=== PATIENT | female | born 1980 | race Caucasian/White ===

== ENCOUNTER 2017-04-07 12:32 | Inpatient (IN) | payer OTHER ==
[2017-04-07] MEDS ORDERED: MORPHINE SULFATE 4 MG/ML SYRINGE IV STA (14:34)
[2017-04-07] MEDS ORDERED: TETANUS-DIPHTHERIA TOX (PF) 0.5 ML VIAL IM ONE (14:34)
[2017-04-07] MEDS ORDERED: cefTRIAXone 2,000 MG in SODIUM CHLORIDE 0.9% 100 ML IVPB STA (14:39)
[2017-04-07] MEDS ORDERED: CLINDAMYCIN 900 MG in DEXTROSE 5% IN WATER 50 ML IVPB STA ×2 (14:40)
[2017-04-07 14:50] LABS: Basophils % (A) 0 %; CH 31.4; CHCM 34.1; Eosinophils % (A) 0 %; HCT 43.6 % (34.0-46.0); HDW 2.37; HGB 14.5 gm/dL (11.4-16.0); Luc # (Auto) 0.23; Luc % (Auto) 1; Lymphocytes # (A) 1.6 k/uL (1.0-4.8); Lymphocytes % (A) 7 %; MCH 30.7 pg (25.0-35.0); MCHC 33.2 g/dL (31.0-37.0); MCV 92.5 fL (80.0-100.0); Mean Platelet Volume 9.6; Monocytes % (A) 5 %; Neutrophils # (A) 18.6 k/uL (1.3-7.7); Neutrophils % (A) 87 %; RBC 4.72 m/uL (3.80-5.40); RDW 13.5 % (11.5-15.5); WBC 21.4 k/uL (3.8-10.6); WBC (Perox) 21.55
[2017-04-07] MEDS ORDERED: SODIUM CHLORIDE 0.9% 2,000 ML IV STA (14:56)
[2017-04-07 15:00] LABS: Calcium 9.1 mg/dL (8.4-10.2); Total Bilirubin 1.1 mg/dL (0.2-1.3); Total Protein 7.5 g/dL (6.3-8.2)
[2017-04-07 15:02] LABS: Potassium 3.4 mmol/L (3.5-5.1)
[2017-04-07] MEDS ORDERED: SODIUM CHLORIDE 0.9% 1,000 ML IV ONE (15:33)
[2017-04-07] MEDS ORDERED: ACETAMINOPHEN TAB 500 MG TAB PO STA (16:03)
--- NOTE | 2017-04-07 16:09 | ED ---
Skin/Abscess/FB HPI - General Chief complaint: Skin/Abscess/Foreign Body Stated complaint: Infection on Buttock Time Seen by Provider: 04/07/17 12:47 Source: patient Mode of arrival: ambulatory Limitations: no limitations - History of Present Illness Initial comments: 46 years old female presented with a left forearm abscess that started about 3 days ago is very painful. Initial high fever chills or fever greater than 102 at home now she has a palpitation and she feels tired. She denies any headaches no neck stiffness no chest pain no abdominal pain no frequency urgency dysuria - Related Data Home Medications Medication Instructions Recorded Confirmed HYDROcodone/APAP 10-325MG [[place] 1 tab PO QID PRN 10/19/15 04/07/17 10-325] Allergies Allergy/AdvReac Type Severity Reaction Status Date / Time Penicillins Allergy Unknown Verified 04/07/17 12:37 Review of Systems ROS Statement: Those systems with pertinent positive or pertinent negative responses have been documented in the HPI. ROS Other: All systems not noted in ROS Statement are negative. Past Medical History Past Medical History: Cancer Additional Past Medical History / Comment(s): ovarian, cervix, uterine and fallopian ca History of Any Multi-Drug Resistant Organisms: None Reported Past Surgical History: Appendectomy Additional Past Surgical History / Comment(s): part of cervix removed Past Psychological History: Anxiety, Depression, Schizophrenia Smoking Status: Current every day smoker Past Alcohol Use History: None Reported Past Drug Use History: None Reported General Exam - General Exam Comments Initial Comments: General: The patient is awake and alert, distress Skin: Skin is warm and dry and no rashes or lesions are noted. With the exception of for a notes indurated area on the left buttocks and left greater trochanter area is about 10 x 10 cm is warm and tender but not quite ready for the I&D at this point Eye: Pupils are equal, round and reactive to light, extra-ocular movements are intact; there is normal conjunctiva bilaterally. Ears, nose, mouth and throat: There are moist mucous membranes and no oral lesions. Neck: The neck is supple, there is no tenderness or JVD. Cardiovascular: There is a regular rate and rhythm. No murmur, rub or gallop is appreciated. His tachycardia Respiratory: To auscultation bilateral, no wheezing no rhonchi no distress respiratory [place] noticed Gastrointestinal: Soft, non-distended, non-tender abdomen without masses or organomegaly noted. There is no rebound or guarding present. Bowel sounds are unremarkable. Back: There is no tenderness to palpation in the midline. There is no obvious deformity. Musculoskeletal: Normal ROM, no tenderness, There is no pedal edema. There is no calf tenderness or swelling. No cords were appreciated. Neurological: CN II-XII intact, Cranial nerves III through XII are intact. There are no obvious motor or sensory deficits. Coordination appears grossly intact. Speech is normal. Psychiatric: Cooperative, appropriate mood & affect, normal judgment. Limitations: no limitations Course Vital Signs 04/07/17 04/07/17 04/07/17 12:34 14:14 15:25 Temperature 101.7 F H 99.5 F Pulse Rate 139 H 118 H 111 H Respiratory 18 18 20 Rate Blood Pressure 123/79 130/56 149/80 O2 Sat by Pulse 98 97 99 Oximetry 04/07/17 16:06 Temperature 103 F H Pulse Rate Respiratory Rate Blood Pressure O2 Sat by Pulse Oximetry Medical Decision Making - Lab Data Result diagrams: 04/07/17 12:56 04/07/17 12:56 Lab Results 04/07/17 04/07/17 Range/Units 12:56 12:56 WBC 21.4 H (3.8-10.6) k/uL RBC 4.72 (3.80-5.40) m/uL Hgb 14.5 (11.4-16.0) gm/dL Hct 43.6 (34.0-46.0) % MCV 92.5 (80.0-100.0) fL MCH 30.7 (25.0-35.0) pg MCHC 33.2 (31.0-37.0) g/dL RDW 13.5 (11.5-15.5) % Plt Count 233 (150-450) k/uL Neutrophils % 87 % Lymphocytes % 7 % Monocytes % 5 % Eosinophils % 0 % Basophils % 0 % Neutrophils # 18.6 H (1.3-7.7) k/uL Lymphocytes # 1.6 (1.0-4.8) k/uL Monocytes # 1.0 (0-1.0) k/uL Eosinophils # 0.0 (0-0.7) k/uL Basophils # 0.0 (0-0.2) k/uL Sodium 133 L (137-145) mmol/L Potassium 3.4 L (3.5-5.1) mmol/L Chloride 100 (98-107) mmol/L Carbon Dioxide 18 L (22-30) mmol/L Anion Gap 15 mmol/L BUN 10 (7-17) mg/dL Creatinine 1.25 H (0.52-1.04) mg/dL Est GFR (MDRD) Af Amer 59 (>60 ml/min/1.73 sqM) Est GFR (MDRD) Non-Af 49 (>60 ml/min/1.73 sqM) Glucose 99 (74-99) mg/dL Calcium 9.1 (8.4-10.2) mg/dL Total Bilirubin 1.1 (0.2-1.3) mg/dL AST 50 H (14-36) U/L ALT 45 (9-52) U/L Alkaline Phosphatase 112 (38-126) U/L Total Protein 7.5 (6.3-8.2) g/dL Albumin 4.0 (3.5-5.0) g/dL Critical Care Time Total Critical Care Time: 30 Critical Care Time: When patient came in fever was 102 pulse rate was 139 blood pressure was 122/70 CC Nathan distress respiratory fluid resuscitation was started cultures were done lactate is pending machine is down today. Patient has a gentle fluid resuscitation with 2 L and ultimately to wrist: Patient also had a 2 g of Rocephin and Flagyl she seems a lot better I discussed with the patient she agreed with inpatient care Dr. Strauss was made aware and now we also discussed that the lactate level is not available at this point patient is hemodynamically stable to go to regular floor Disposition Clinical Impression: Sepsis, Abscess Disposition: ADMITTED IP TO THIS HOSP Condition: Good Referrals: Shaun Strauss MD [Primary Care Provider] - 1-2 days
[2017-04-07] MEDS ORDERED: ACETAMINOPHEN TAB 500 MG TAB PO PRN (16:23)
[2017-04-07 17:38] VITALS: BMI 34.5
[2017-04-07] MEDS: SODIUM CHLORIDE 0.9% 1,000 ML IV ONE (17:51)
[2017-04-07] MEDS: HYDROcodone/APAP 10-325MG 1 EACH TAB PO PRN (17:51)
[2017-04-07] MEDS: metroNIDAZOLE-NS PMX 500 MG in SALINE 1 100ML.BAG IVPB SCH (23:59)
[2017-04-08] MEDS: HYDROcodone/APAP 10-325MG 1 EACH TAB PO PRN
[2017-04-08] MEDS: SODIUM CHLORIDE 0.9% 1,000 ML IV ONE (00:07)
[2017-04-08] MEDS ORDERED: NICOTINE 21MG/24HR PATCH TRANSDERM STA (08:20)
[2017-04-08] MEDS: SODIUM CHLORIDE 0.9% 1,000 ML IV SCH (08:21)
[2017-04-08] MEDS: metroNIDAZOLE-NS PMX 500 MG in SALINE 1 100ML.BAG IVPB SCH ×2 (08:21→18:11)
--- NOTE | 2017-04-08 08:33 | P.HPIM ---
History of Present Illness H&P Date: 04/08/17 Chief Complaint: left buttock abscess 37-year-old female presented on the day of admission to the emergency room with a chief complaint of developing painful swelling redness tenderness involving the left buttocks. Patient stated it started approximately 3 days ago when she noted "looked like a pimple over the next 24-48 hours it expanded Increased in size woke up the day of the event the left buttocks cheek swollen tender with firmness at the site. Patient stated she had a temp of 102 at home felt heart palpitations increased fatigue nausea sensation vomited 1. Patient denies any injury. Patient denies any prior treatment for abscess. Patient denied abdominal pain denied any frequency urgency with urination. Patient states she has had a poor oral appetite at home secondary to the pain in the left buttock. Patient stated that she was concerned and came into the emergency room to be evaluated for the above-mentioned symptoms. In the emergency room the temp was 103 patient was tachycardic heart rate was in the 130s white count was elevated to 21 patient was admitted started on IV fluid and IV antibiotics. The left buttock has increased in size from the reference markings. The left buttocks red cellulitis firm with several small blisters. past medical history patient states she takes [employer] for chronic back pain. Otherwise an unremarkable past medical history. Patient is an active current every day smoker. Patient gives no surgical history except having part of the cervix removed Review of Systems essentially unremarkable except as mentioned in the present illness Past Medical History Past Medical History: Cancer Additional Past Medical History / Comment(s): ovarian, cervix, uterine and fallopian ca. CHRONIC BACK PAIN History of Any Multi-Drug Resistant Organisms: None Reported Past Surgical History: Appendectomy Additional Past Surgical History / Comment(s): part of cervix removed Past Anesthesia/Blood Transfusion Reactions: No Reported Reaction Past Psychological History: Anxiety, Depression Smoking Status: Current every day smoker Past Alcohol Use History: None Reported Past Drug Use History: None Reported - Past Family History Mother Family Medical History: No Reported History Medications and Allergies Home Medications Medication Instructions Recorded Confirmed Type HYDROcodone/APAP 10-325MG [[place] 1 tab PO QID PRN 10/19/15 04/07/17 History 10-325] Allergies Allergy/AdvReac Type Severity Reaction Status Date / Time Penicillins Allergy Unknown Verified 04/07/17 12:37 Physical Exam Vitals: Vital Signs Temp Pulse Pulse Pulse Resp BP BP 04/08/17 08:00 100.4 F H 112 H 18 113/84 04/08/17 00:00 101.8 F H 126 H 24 153/89 04/07/17 20:00 100.2 F H 98 24 120/69 04/07/17 17:00 100.3 F H 107 H 18 123/68 04/07/17 16:53 102.6 F H 97 18 152/90 04/07/17 16:06 103 F H 04/07/17 15:25 99.5 F 111 H 20 149/80 04/07/17 14:14 118 H 18 130/56 04/07/17 12:34 101.7 F H 139 H 18 123/79 Pulse Ox 04/08/17 08:00 99 04/08/17 00:00 97 04/07/17 20:00 98 04/07/17 17:00 99 04/07/17 16:53 96 04/07/17 16:06 04/07/17 15:25 99 04/07/17 14:14 97 04/07/17 12:34 98 Intake and Output 04/07/17 04/08/17 04/08/17 22:59 06:59 14:59 Intake Total 400 1200 Output Total 500 650 Balance -100 550 Intake: Oral 400 1200 Output: Urine 500 650 Other: Voiding Method Toilet Toilet # Voids 1 1 Weight 85.729 kg GENERAL APPEARANCE: 37-year-old female patient is alert, oriented, in no acute distress. VITAL SIGNS: reviewed HEENT: Head is normocephalic and atraumatic. Pupils are equal and reactive. The nares are patent. Oropharynx is clear without lesions. NECK: Supple without lymphadenopathy. Traches midline. HEART: S1, S2. Regular rate and rhythm.no murmur noted heart rate in the 90s LUNGS: .adequate air movement a few bilateral prolonged expiratory wheezing noted no cough noted ABDOMEN: Soft, nontender, nondistended with good bowel sounds. No peritoneal signs. No palpable organomegaly or masses. EXTREMITIES: Normal skin color and turgor. No cyanosis, rash, ulceration, clubbing or edema. Radial pedal pulses are 2/4 bilaterally. NEUROLOGICAL: No focal deficits. Strength and sensation are grossly intact. skin no skin rash noted except there is a large 10 x 10 cm left buttock inturated firm tender areawith evidence of redness Results CBC & Chem 7: 04/07/17 12:56 04/07/17 12:56 Labs: Abnormal Lab Results - Last 24 Hours (Table) 04/07/17 04/07/17 Range/Units 12:56 12:56 WBC 21.4 H (3.8-10.6) k/uL Neutrophils # 18.6 H (1.3-7.7) k/uL Sodium 133 L (137-145) mmol/L Potassium 3.4 L (3.5-5.1) mmol/L Carbon Dioxide 18 L (22-30) mmol/L Creatinine 1.25 H (0.52-1.04) mg/dL AST 50 H (14-36) U/L Thrombosis Risk Factor Assmnt - Choose All That Apply Any of the Below Risk Factors Present?: Yes Each Factor Represents 1 point: Obesity (BMI >25) Thrombosis Risk Factor Assessment Total Risk Factor Score: 1 Thrombosis Risk Factor Assessment Level: Low Risk Assessment and Plan Plan: impression Present on admission febrile tachycardic leukocytosis sepsis suspect due to left buttock abscess new onset Current every day smoker 1 pack a day Anxiety depressive disorder nonspecified Present on admission 10 x 10 cm indurated area left buttock and left greater trochanter Plan IV fluid and 25 an hour Continue IV antibiotics Rocephin and the ankle as ordered Obtain urine sent for culture and sensitivity Consult Dr. Quezada surgical service to monitor the left buttock abscess question will need for incision and drainage Pain control DVT and GI prophylaxis Further recommendations pending will follow The above impression and plan of care have been discussed and directed by signing physician. Jennifer Portillo nurse practitioner acting as scribe for signing physician.
[2017-04-08] MEDS: HYDROmorphone 1 MG/ML 1 ML SYRINGE IVP PRN ×2 (08:51→15:44)
[2017-04-08] MEDS: PANTOPRAZOLE 40 MG/10 ML VIAL IVP SCH (09:00)
[2017-04-08] MEDS: LACTOBACILLUS ACIDOPH & BULGAR 1 EACH PACKET PO SCH ×4 (09:00→22:37)
[2017-04-08] MEDS: ONDANSETRON 4 MG/2 ML VIAL IVP PRN ×2 (09:01→16:56)
[2017-04-08 09:06] LABS: Basophils % (A) 0 %; CH 30.4; CHCM 33.7; Eosinophils % (A) 0 %; HCT 34.4 % (34.0-46.0); HDW 2.45; HGB 11.8 gm/dL (11.4-16.0); Luc # (Auto) 0.34; Luc % (Auto) 2; Lymphocytes # (A) 1.6 k/uL (1.0-4.8); Lymphocytes % (A) 8 %; MCH 31.1 pg (25.0-35.0); MCHC 34.4 g/dL (31.0-37.0); MCV 90.5 fL (80.0-100.0); Mean Platelet Volume 8.6; Monocytes # (A) 1.1 k/uL (0-1.0); Monocytes % (A) 5 %; Neutrophils # (A) 17.8 k/uL (1.3-7.7); Neutrophils % (A) 85 %; RDW 12.7 % (11.5-15.5); WBC 20.9 k/uL (3.8-10.6); WBC (Perox) 21.56
[2017-04-08] MEDS ORDERED: IV VANCOMYCIN PER PHARMACY 1 EACH MISC MISCELLANE PRN (09:17)
[2017-04-08 09:27] LABS: ALT 34 U/L (9-52); AST 30 U/L (14-36); Alkaline Phosphatase 73 U/L (38-126); Anion Gap 10 mmol/L; Blood Urea Nitrogen 8 mg/dL (7-17); Calcium 7.8 mg/dL (8.4-10.2); Carbon Dioxide 19 mmol/L (22-30); Chloride 103 mmol/L (98-107); Glucose 87 mg/dL (74-99); Non-African American GFR(MDRD) >60 (>60 ml/min/1.73 sqM); Sodium 132 mmol/L (137-145); Total Protein 5.4 g/dL (6.3-8.2)
[2017-04-08 09:31] LABS: Potassium 2.8 mmol/L (3.5-5.1)
[2017-04-08] MEDS ORDERED: LIDOCAINE 4% CREAM 5 GM TUBE TOPICAL ONE (09:49)
[2017-04-08] MEDS ORDERED: POTASSIUM CHLORIDE ER 20 MEQ TAB.ER PO SCH (10:00)
[2017-04-08] MEDS ORDERED: VANCOMYCIN 1,750 MG in SODIUM CHLORIDE 0.9% 250 ML IVPB ONE (10:00)
[2017-04-08 10:20] LABS: Appearance,Urine Clear (Clear); Bacteria,Urine Rare /hpf; Bilirubin,Urine Negative (Negative); Glucose,Urine (UA) Negative (Negative); Ketones,Urine Negative (Negative); Leukocyte Esterase,Urine Trace (Negative); Mucus,Urine Rare /hpf; Nitrite,Urine Negative (Negative); Particle Count 2721; Protein,Urine 1+ (Negative); RBC,Urine 26 /hpf (0-5); Specific Gravity,Urine 1.007 (1.001-1.035); Squamous Epithelial Cell,Urine 2 /hpf (0-4); UA Billing (MACRO vs. MICRO) MICRO; WBC,Urine 10 /hpf (0-5)
[2017-04-08] MEDS: IPRATROPIUM-ALBUTEROL 3 ML NEB INHALATION PRN (10:22)
[2017-04-08] MEDS: POTASSIUM CHLORIDE 10 MEQ, LIDOCAINE 2% INJ 10 MG in SODIUM CHLORIDE 0.9% 100 ML IVPB SCH ×6 (11:17→23:47)
[2017-04-08] MEDS: MAGNESIUM SULFATE-D5W PMX 1 GM in DEXTROSE/WATER 1 100ML.BAG IVPB SCH ×4 (11:58→17:00)
[2017-04-08] MEDS ORDERED: ACETAMINOPHEN IV (For NPO) 1,000 MG in EMPTY BAG 1 BAG IVPB ONE (12:30)
--- NOTE | 2017-04-08 15:17 | HP ---
CHIEF COMPLAINT: Pain, swelling and abscess on the left buttock. HISTORY OF PRESENT ILLNESS: This is another admission for this 37-year-old white female. She had a small pimple on the left buttock and it gradually grew into a large of cellulitis with induration and pain. She came to the emergency room. Her temp was 102 and her pulse was 114. White count was 22,000. There has been no drainage. She is not diabetic. REVIEW OF SYSTEMS: She has had no neurologic problems, difficulty with vision or hearing, chest pain, shortness of breath, cough, hemoptysis, heart disease, hypertension, murmurs, fever, abdominal pain, nausea, vomiting, hematuria, frequency, urgency, dysuria, arthralgias, diabetes, etc. PAST MEDICAL HISTORY, FAMILY HISTORY AND PERSONAL/SOCIAL HISTORY: Reveal that she is allergic to PENICILLIN. She has not been seen in the office for several years. She does smoke. PHYSICAL EXAM: Blood pressure 134/90 with a pulse of 112, respirations 36 and temperature 102. GENERAL: She appeared to be overweight and uncomfortable. SKIN: Dry. LYMPH NODES: Not enlarged. She had multiple tattoos on the arms and legs. HEENT: Normal. CHEST: Clear. CARDIAC: Normal. ABDOMEN: Soft. EXTREMITIES: Normal. The left buttock was indurated and erythematous. There was no drainage. NEUROLOGIC: Intact. IMPRESSION: Cellulitis and abscess of the left buttock, likely staphylococcus. PLAN: 1. Bedrest. 2. IV fluids. 3. IV antibiotics. 4. Surgical consult for I&D. GENEVIEVE
--- NOTE | 2017-04-08 15:19 | PN ---
DATE OF SERVICE: 04/08/2017 CHIEF COMPLAINT: Abscess, left buttock. HISTORY OF PRESENT ILLNESS: This lady is doing fairly well but still has quite a bit of discomfort. The area of cellulitis has receded slightly. PHYSICAL EXAMINATION: Cellulitic area is slightly smaller than on admission, but there is still a great deal of induration and tenderness. IMPRESSION: Methicillin-resistant Staphylococcus aureus abscess of the left buttock. PLAN: Continue with antibiotics and await surgical evaluation. GENEVIEVE
[2017-04-08] MEDS: cefTRIAXone 2,000 MG in SODIUM CHLORIDE 0.9% 100 ML IVPB SCH (16:32)
[2017-04-08 16:55] LABS: Anion Gap 9 mmol/L; Blood Urea Nitrogen 7 mg/dL (7-17); Calcium 7.5 mg/dL (8.4-10.2); Carbon Dioxide 19 mmol/L (22-30); Chloride 105 mmol/L (98-107); Glucose 95 mg/dL (74-99); Non-African American GFR(MDRD) >60 (>60 ml/min/1.73 sqM); Sodium 133 mmol/L (137-145)
[2017-04-08] MEDS ORDERED: Potassium Replacement Protocol 1 EACH MISC MISCELLANE PRN (17:36)
[2017-04-08] MEDS: POTASSIUM CHLORIDE 10 MEQ, LIDOCAINE 2% INJ 10 MG in SODIUM CHLORIDE 0.9% 100 ML IV SCH ×2 (18:08→19:11)
[2017-04-08] MEDS: VANCOMYCIN 1,500 MG in SODIUM CHLORIDE 0.9% 250 ML IVPB SCH (19:29)
--- NOTE | 2017-04-08 19:49 | P.GSCN ---
History of Present Illness Consult date: 04/08/17 Reason for Consult: Left buttock abscess History of present illness: Patient came to the hospital with a 4 day history of left buttock pain. She states that she had a small pimple in that area that over the last 4 days has rapidly increased in size. She is unable to lay on it. She was having fevers both at home and here in the hospital. She has been tachycardic. Her lactic acid was minimally elevated on admission today and now is down to normal. White blood cell count significantly elevated. No history of diabetes. No history of similar events in the past. No recent follow-up. Review of Systems The patient denies any acute changes in vision or hearing, no dysphagia or odynophagia, no chest pain or shortness of breath, no dysuria or hematuria, no headache, no runny nose, no rectal bleeding or melena, no unexplained weight loss Past Medical History Past Medical History: Cancer Additional Past Medical History / Comment(s): ovarian, cervix, uterine and fallopian ca. CHRONIC BACK PAIN History of Any Multi-Drug Resistant Organisms: None Reported Past Surgical History: Appendectomy Additional Past Surgical History / Comment(s): part of cervix removed Past Anesthesia/Blood Transfusion Reactions: No Reported Reaction Past Psychological History: Anxiety, Depression Smoking Status: Current every day smoker Past Alcohol Use History: None Reported Past Drug Use History: None Reported - Past Family History Mother Family Medical History: No Reported History Medications and Allergies Home Medications Medication Instructions Recorded Confirmed Type HYDROcodone/APAP 10-325MG [[place] 1 tab PO QID PRN 10/19/15 04/07/17 History 10-325] Allergies Allergy/AdvReac Type Severity Reaction Status Date / Time Penicillins Allergy Unknown Verified 04/07/17 12:37 Surgical - Exam Vital Signs Temp Pulse Resp BP Pulse Ox 101.7 F H 139 H 18 123/79 98 04/07/17 12:34 04/07/17 12:34 04/07/17 12:34 04/07/17 12:34 04/07/17 12:34 Physical exam: General: Well-developed, well-nourished HEENT: Normocephalic, sclerae nonicteric Abdomen: Nontender, nondistended Extremities: Large left buttock abscess extending toward the perirectal region, erythema, tenderness, fluctuance, and superficial skin necrosis is visualized Neuro: Alert and oriented Results - Labs 04/08/17 08:35 04/08/17 16:32 Abnormal Lab Results - Last 24 Hours (Table) 04/08/17 04/08/17 04/08/17 Range/Units 08:35 08:35 08:35 WBC 20.9 H (3.8-10.6) k/uL Neutrophils # 17.8 H (1.3-7.7) k/uL Monocytes # 1.1 H (0-1.0) k/uL Sodium 132 L (137-145) mmol/L Potassium 2.8 L* (3.5-5.1) mmol/L Carbon Dioxide 19 L (22-30) mmol/L Calcium 7.8 L (8.4-10.2) mg/dL Magnesium 1.4 L (1.6-2.3) mg/dL Total Protein 5.4 L (6.3-8.2) g/dL Albumin 2.7 L (3.5-5.0) g/dL Urine Protein (Negative) Urine Blood (Negative) Ur Leukocyte Esterase (Negative) Urine RBC (0-5) /hpf Urine WBC (0-5) /hpf Urine Bacteria (None) /hpf Urine Mucus (None) /hpf 04/08/17 04/08/17 04/08/17 Range/Units 09:10 16:32 16:45 WBC (3.8-10.6) k/uL Neutrophils # (1.3-7.7) k/uL Monocytes # (0-1.0) k/uL Sodium 133 L (137-145) mmol/L Potassium 3.0 L* (3.5-5.1) mmol/L Carbon Dioxide 19 L (22-30) mmol/L Calcium 7.5 L (8.4-10.2) mg/dL Magnesium 2.6 H (1.6-2.3) mg/dL Total Protein (6.3-8.2) g/dL Albumin (3.5-5.0) g/dL Urine Protein 1+ H (Negative) Urine Blood Moderate H (Negative) Ur Leukocyte Esterase Trace H (Negative) Urine RBC 26 H (0-5) /hpf Urine WBC 10 H (0-5) /hpf Urine Bacteria Rare H (None) /hpf Urine Mucus Rare H (None) /hpf Microbiology - Last 24 Hours (Table) 04/07/17 12:56 Blood Culture - Preliminary Blood No Growth after 24 hours 04/08/17 09:10 Urine Culture - Preliminary Urine,Clean Catch Diabetes panel 04/08/17 04/08/17 Range/Units 08:35 16:32 Sodium 132 L 133 L (137-145) mmol/L Potassium 2.8 L* 3.0 L* (3.5-5.1) mmol/L Chloride 103 105 (98-107) mmol/L Carbon Dioxide 19 L 19 L (22-30) mmol/L BUN 8 7 (7-17) mg/dL Creatinine 0.89 0.93 (0.52-1.04) mg/dL Glucose 87 95 (74-99) mg/dL Calcium 7.8 L 7.5 L (8.4-10.2) mg/dL AST 30 (14-36) U/L ALT 34 (9-52) U/L Alkaline Phosphatase 73 (38-126) U/L Total Protein 5.4 L (6.3-8.2) g/dL Albumin 2.7 L (3.5-5.0) g/dL Calcium panel 04/08/17 04/08/17 Range/Units 08:35 16:32 Calcium 7.8 L 7.5 L (8.4-10.2) mg/dL Albumin 2.7 L (3.5-5.0) g/dL Pituitary panel 04/08/17 04/08/17 Range/Units 08:35 16:32 Sodium 132 L 133 L (137-145) mmol/L Potassium 2.8 L* 3.0 L* (3.5-5.1) mmol/L Chloride 103 105 (98-107) mmol/L Carbon Dioxide 19 L 19 L (22-30) mmol/L BUN 8 7 (7-17) mg/dL Creatinine 0.89 0.93 (0.52-1.04) mg/dL Glucose 87 95 (74-99) mg/dL Calcium 7.8 L 7.5 L (8.4-10.2) mg/dL Adrenal panel 04/08/17 04/08/17 Range/Units 08:35 16:32 Sodium 132 L 133 L (137-145) mmol/L Potassium 2.8 L* 3.0 L* (3.5-5.1) mmol/L Chloride 103 105 (98-107) mmol/L Carbon Dioxide 19 L 19 L (22-30) mmol/L BUN 8 7 (7-17) mg/dL Creatinine 0.89 0.93 (0.52-1.04) mg/dL Glucose 87 95 (74-99) mg/dL Calcium 7.8 L 7.5 L (8.4-10.2) mg/dL Total Bilirubin 1.0 (0.2-1.3) mg/dL AST 30 (14-36) U/L ALT 34 (9-52) U/L Alkaline Phosphatase 73 (38-126) U/L Total Protein 5.4 L (6.3-8.2) g/dL Albumin 2.7 L (3.5-5.0) g/dL Assessment and Plan (1) Left buttock abscess Narrative/Plan: Clinical scenario discussed with the patient. We'll proceed with incision and drainage. Risks of bleeding, infection, nonhealing wound, recurrence, scarring , and progressive sepsis were discussed. She understands and wishes to proceed. Status: Acute
[2017-04-08] MEDS ORDERED: MIDAZOLAM 2 MG/2 ML VIAL ONE (20:26)
[2017-04-08] MEDS ORDERED: fentaNYL (PF) 50 MCG/ML 2 ML AMP ONE (20:26)
[2017-04-08] MEDS ORDERED: PROPOFOL 10 MG/ML 20 ML VIAL IV ONE (20:26)
[2017-04-08] MEDS ORDERED: BUPIVACAINE (PF) 0.25% 30 ML VIAL SQ ONE (20:47)
[2017-04-08] MEDS ORDERED: LACTATED RINGERS 1,000 ML IV ONE (20:48)
--- NOTE | 2017-04-08 21:02 | P.PCN ---
Date of Procedure: 04/08/17 Preoperative Diagnosis: Postoperative Diagnosis: Procedure(s) Performed: PREOPERATIVE DIAGNOSIS: Left buttock abscess POSTOPERATIVE DIAGNOSIS: Same PROCEDURE: Incision and drainage left buttock abscess SURGEON: Pilar EBL: Minimal ANESTHESIA: General COMPLICATIONS: None OPERATIVE PROCEDURE: Patient was placed in the right decubitus position. The patient's left buttock was prepped and draped in usual sterile fashion. The area where the skin had some ischemic changes was incised. This was lengthened in a vertical direction. An abscess cavity was encountered measuring 6 x 4 cm. This was evacuated. The septa were broken apart. Cultures were obtained. The wound was irrigated with saline. Tissue was sent for pathologic evaluation. The wound was then packed with saline moistened Mike gauze. DISPOSITION: Stable to recovery room Implants: Indications for Procedure: Operative Findings: Description of Procedure:
[2017-04-08] MEDS ORDERED: HYDROmorphone 1 MG/ML 1 ML SYRINGE IVP ONE (21:30)
[2017-04-08] MEDS ORDERED: IV FLUID CONTINUATION 1,000 ML IV ONE (21:52)
[2017-04-09] MEDS: HYDROmorphone 1 MG/ML 1 ML SYRINGE IVP PRN ×4 (00:05→19:46)
[2017-04-09] MEDS: metroNIDAZOLE-NS PMX 500 MG in SALINE 1 100ML.BAG IVPB SCH ×3 (00:59→16:52)
[2017-04-09 01:32] LABS: ALT 41 U/L (9-52); AST 28 U/L (14-36); Alkaline Phosphatase 80 U/L (38-126); Anion Gap 7 mmol/L; Blood Urea Nitrogen 6 mg/dL (7-17); Calcium 7.9 mg/dL (8.4-10.2); Carbon Dioxide 19 mmol/L (22-30); Chloride 108 mmol/L (98-107); Glucose 84 mg/dL (74-99); Magnesium 2.1 mg/dL (1.6-2.3); Non-African American GFR(MDRD) >60 (>60 ml/min/1.73 sqM); Potassium 3.3 mmol/L (3.5-5.1); Sodium 134 mmol/L (137-145); Total Bilirubin 0.6 mg/dL (0.2-1.3)
[2017-04-09] MEDS: SODIUM CHLORIDE 0.9% 1,000 ML IV SCH ×4 (03:54→14:01)
[2017-04-09] MEDS: VANCOMYCIN 1,500 MG in SODIUM CHLORIDE 0.9% 250 ML IVPB SCH ×2 (05:46→18:53)
[2017-04-09 07:36] LABS: Basophils % (A) 0 %; CH 30.5; CHCM 33.5; Eosinophils # (A) 0.1 k/uL (0-0.7); Eosinophils % (A) 0 %; HCT 30.3 % (34.0-46.0); HDW 2.52; HGB 10.2 gm/dL (11.4-16.0); Luc # (Auto) 0.19; Luc % (Auto) 2; Lymphocytes # (A) 1.2 k/uL (1.0-4.8); Lymphocytes % (A) 9 %; MCH 30.8 pg (25.0-35.0); MCHC 33.7 g/dL (31.0-37.0); MCV 91.5 fL (80.0-100.0); Mean Platelet Volume 8.4; Monocytes # (A) 0.5 k/uL (0-1.0); Monocytes % (A) 4 %; Neutrophils # (A) 11.2 k/uL (1.3-7.7); Neutrophils % (A) 85 %; RBC 3.31 m/uL (3.80-5.40); RDW 12.8 % (11.5-15.5); WBC 13.2 k/uL (3.8-10.6); WBC (Perox) 13.69
[2017-04-09 07:46] LABS: ALT 38 U/L (9-52); AST 27 U/L (14-36); Alkaline Phosphatase 64 U/L (38-126); Anion Gap 8 mmol/L; Blood Urea Nitrogen 6 mg/dL (7-17); Calcium 7.7 mg/dL (8.4-10.2); Carbon Dioxide 20 mmol/L (22-30); Chloride 106 mmol/L (98-107); Glucose 104 mg/dL (74-99); Magnesium 1.5 mg/dL (1.6-2.3); Non-African American GFR(MDRD) >60 (>60 ml/min/1.73 sqM); Sodium 134 mmol/L (137-145); Total Bilirubin 0.5 mg/dL (0.2-1.3); Total Protein 4.7 g/dL (6.3-8.2)
[2017-04-09 07:53] LABS: Potassium 2.7 mmol/L (3.5-5.1)
--- NOTE | 2017-04-09 08:51 | P.PN ---
Subjective 47-year-old female being seen on rounds this morning early resting in bed states pain medication effective for pain control. Patient is postop April 08 incision and drainage of a left buttock abscess. Dressing to the surgical site dry. Patient reports no nausea vomiting. Reviewing the operative report indicate the abscess cavity measured 6 x 4 cm the wound was packed. Patient states tolerating diet. Did note the temp was 101.6 last night at midnight. Current temp this morning 99. The white count is down to 13.2 and is being followed by infectious disease surgical service IV antibiotics are being directed by infectious disease service cultures are pending Objective - Vital Signs Vital signs: Vital Signs Temp 99.0 F 04/09/17 01:00 Pulse 102 H 04/09/17 02:00 Resp 24 04/09/17 02:00 BP 108/52 04/09/17 02:00 Pulse Ox 94 L 04/09/17 02:00 Intake & Output 04/08/17 04/09/17 04/09/17 18:59 06:59 18:59 Intake Total 1190 1610 Output Total 1100 710 Balance 90 900 Intake: IV 750 Intake, IV Titration 1190 100 Amount Magnesium Sulfate-D5w Pmx 340 1 gm In Dextrose/Water 1 100ml.bag @ 100 mls/hr IVPB Q1H [facility] Rx#: [id number] Potassium Chloride 10 meq 400 100 Lidocaine 2% Inj 10 mg In Sodium Chloride 0.9% 100 ml @ 100 mls/hr IVPB Q1HR [facility] Rx#:[id number] Vancomycin 1,750 mg In 250 Sodium Chloride 0.9% 250 ml @ 125 mls/hr IVPB ONCE ONE Rx#:[id number] cefTRIAXone 2,000 mg In 100 Sodium Chloride 0.9% 100 ml @ 100 mls/hr IVPB Q24HR [facility] Rx#:[id number] metroNIDAZOLE-NS PMX 500 100 mg In Saline 1 100ml.bag @ 100 mls/hr IVPB Q8HR [facility] Rx#:[id number] Oral 760 Output: Urine 1100 700 Estimated Blood Loss 10 Other: Voiding Method Toilet Toilet # Voids 1 1 - Exam Physical exam Pleasant 37-year-old female resting in bed pleasant cooperative oriented 3 Lungs essentially clear adequate air movement on room air Heart S1-S2 audible regular Abdomen soft nontender reports no nausea vomiting bowel tones present urinating no difficulty Extremities no edema multiple skin tattoos noted Skin dressing left buttocks dry - Labs CBC & Chem 7: 04/09/17 07:12 04/09/17 07:12 Labs: Abnormal Lab Results - Last 24 Hours (Table) 04/08/17 04/08/17 04/08/17 Range/Units 08:35 08:35 08:35 WBC 20.9 H (3.8-10.6) k/uL RBC (3.80-5.40) m/uL Hgb (11.4-16.0) gm/dL Hct (34.0-46.0) % Neutrophils # 17.8 H (1.3-7.7) k/uL Monocytes # 1.1 H (0-1.0) k/uL Sodium 132 L (137-145) mmol/L Potassium 2.8 L* (3.5-5.1) mmol/L Chloride (98-107) mmol/L Carbon Dioxide 19 L (22-30) mmol/L BUN (7-17) mg/dL Glucose (74-99) mg/dL Calcium 7.8 L (8.4-10.2) mg/dL Magnesium 1.4 L (1.6-2.3) mg/dL Total Protein 5.4 L (6.3-8.2) g/dL Albumin 2.7 L (3.5-5.0) g/dL Urine Protein (Negative) Urine Blood (Negative) Ur Leukocyte Esterase (Negative) Urine RBC (0-5) /hpf Urine WBC (0-5) /hpf Urine Bacteria (None) /hpf Urine Mucus (None) /hpf 04/08/17 04/08/17 04/08/17 Range/Units 09:10 16:32 16:45 WBC (3.8-10.6) k/uL RBC (3.80-5.40) m/uL Hgb (11.4-16.0) gm/dL Hct (34.0-46.0) % Neutrophils # (1.3-7.7) k/uL Monocytes # (0-1.0) k/uL Sodium 133 L (137-145) mmol/L Potassium 3.0 L* (3.5-5.1) mmol/L Chloride (98-107) mmol/L Carbon Dioxide 19 L (22-30) mmol/L BUN (7-17) mg/dL Glucose (74-99) mg/dL Calcium 7.5 L (8.4-10.2) mg/dL Magnesium 2.6 H (1.6-2.3) mg/dL Total Protein (6.3-8.2) g/dL Albumin (3.5-5.0) g/dL Urine Protein 1+ H (Negative) Urine Blood Moderate H (Negative) Ur Leukocyte Esterase Trace H (Negative) Urine RBC 26 H (0-5) /hpf Urine WBC 10 H (0-5) /hpf Urine Bacteria Rare H (None) /hpf Urine Mucus Rare H (None) /hpf 04/09/17 04/09/17 04/09/17 Range/Units 00:59 07:12 07:12 WBC 13.2 H (3.8-10.6) k/uL RBC 3.31 L (3.80-5.40) m/uL Hgb 10.2 L (11.4-16.0) gm/dL Hct 30.3 L (34.0-46.0) % Neutrophils # 11.2 H (1.3-7.7) k/uL Monocytes # (0-1.0) k/uL Sodium 134 L 134 L (137-145) mmol/L Potassium 3.3 L 2.7 L* (3.5-5.1) mmol/L Chloride 108 H (98-107) mmol/L Carbon Dioxide 19 L 20 L (22-30) mmol/L BUN 6 L 6 L (7-17) mg/dL Glucose 104 H (74-99) mg/dL Calcium 7.9 L 7.7 L (8.4-10.2) mg/dL Magnesium 1.5 L (1.6-2.3) mg/dL Total Protein 5.0 L 4.7 L (6.3-8.2) g/dL Albumin 2.4 L 2.3 L (3.5-5.0) g/dL Urine Protein (Negative) Urine Blood (Negative) Ur Leukocyte Esterase (Negative) Urine RBC (0-5) /hpf Urine WBC (0-5) /hpf Urine Bacteria (None) /hpf Urine Mucus (None) /hpf Microbiology - Last 24 Hours (Table) 04/07/17 12:56 Blood Culture - Preliminary Blood No Growth after 24 hours 04/08/17 09:10 Urine Culture - Preliminary Urine,Clean Catch Assessment and Plan Plan: impression Present on admission febrile tachycardic leukocytosis sepsis suspect due to left buttock abscess new onset Current every day smoker 1 pack a day Anxiety depressive disorder nonspecified Present on admission indurated area left buttock and left greater trochanter Status post April 08 incision and drainage left buttock abscess measuring 6 x 4 cm Electrolyte abnormality hypo-magnesium, hypokalemia Plan IV fluid 125 an hour Continue IV antibiotics , Rocephin, Flagyl, vancomycin Obtain urine sent for culture and sensitivity Continue postop surgical care Pain control DVT and GI prophylaxis Further recommendations pending will follow Potassium to be replaced The above impression and plan of care have been discussed and directed by signing physician. Jennifer Portillo nurse practitioner acting as scribe for signing physician.
[2017-04-09] MEDS: PANTOPRAZOLE 40 MG/10 ML VIAL IVP SCH (08:58)
[2017-04-09] MEDS: LACTOBACILLUS ACIDOPH & BULGAR 1 EACH PACKET PO SCH ×4 (08:58→21:33)
[2017-04-09] MEDS: POTASSIUM CHLORIDE ER 20 MEQ TAB.ER PO SCH ×2 (09:32→11:41)
--- NOTE | 2017-04-09 10:25 | CONS ---
DATE OF SERVICE: 04/08/2017 REASON FOR CONSULTATION: Left gluteal abscess. HISTORY OF PRESENT ILLNESS: The patient is a 37-year-old female who presented to the ER at [facility] last evening with chief complaints of pain, swelling and redness of the left gluteal area. Apparently her symptoms have been going on for about three days prior to admission to the hospital. It started with pimple that has gradually increased in size and became more painful. Patient described it as throbbing, almost 10/10 and no significant radiation. No significant drainage from it. The patient denies having any chest pain, shortness or breath. No abdominal pain or any diarrhea. The patient subsequently evaluated by the ER physician. Patient did have fever of 101.3 degrees Fahrenheit. The patient also had elevated white count of 20,000. The patient did receive dose of Clindamycin in the ER and subsequently admitted to the hospital on Rocephin, Flagyl and I was asked to see the patient for further recommendations regarding antibiotic therapy. REVIEW OF SYSTEMS: CONSTITUTIONAL: Positive for weakness along with fever. EYES: No complaint. ENT: No complaint. RESPIRATORY: No complaint CARDIOVASCULAR: No complaint. GENITOURINARY: No complaint. GASTROINTESTINAL: No complaint. MUSCULOSKELETAL: No complaint. INTEGUMENTARY: As per HPI. PSYCHOLOGICAL: No complaint. ENDOCRINE: No complaint. NEUROLOGICAL: No complaint. PAST MEDICAL HISTORY: Significant for ovarian and cervical cancer and chronic back pain. PAST SURGICAL HISTORY: Appendectomy. SOCIAL HISTORY: Positive for smoking. Currently every day smoker. No drinking or drug use. FAMILY HISTORY: No pertinent findings noticed. ALLERGIES: PENICILLIN, tolerated Rocephin without any problem. Medications include the patient is currently on Tylenol, [place], DuoNeb, Rocephin , Dilaudid, Lactinex, Flagyl, Protonix, and clindamycin. On examination: Blood pressure 117/62 with pulse 103. Temperature 101.5. She is 94% on room air. General description is a middle aged female lying in bed in no distress. No tachypnea or accessory muscle of respiration use. HEENT examination shows no pallor or scleral icterus. Oral mucous membrane is dry. NECK: Trachea is central. No thyromegaly. LUNGS: Unlabored breathing. Clear to auscultation anteriorly. HEART: S1, S2 regular rate and rhythm. ABDOMEN: Soft, no tenderness. No rigidity. Examination of the left rectal area , the patient noticed to have left gluteal swelling, redness and tenderness. ( ) close to the anal canal. No drainage. EXTREMITIES: No edema feet. SKIN: No rash or mass palpable. NEUROLOGICAL: Patient is awake, alert, oriented x3. Mood and affect normal. LABS: Hemoglobin is 11.8, white count 20.9. BUN 7, creatinine of 0.93. Blood culture currently pending. DIAGNOSTIC IMPRESSION AND PLAN: 1. Patient with sepsis in patient who did have fever of 103 degrees Fahrenheit with elevated white count of 20,000. Source is left gluteal cellulitis and possible abscess with symptoms stating with pimple likely a Gram positive skin hattie, ( ) staphylococcal aureus and less likely a Gram- negative pathogen though not entirely excluded. 2. Patient does have PENICILLIN ALLERGY that does limit the number of antibiotics that can be safely used. PLAN: 1. Vancomycin has been added to cover for possible MRSA. Pharmacy to dose with target of 15. 2. Requesting aerobic and anaerobic wound cultures at time of surgical drainage of the sepsis which is scheduled for this afternoon per RN. 3. Will follow up on the clinical condition and culture to further adjust medication if needed. Thank you for this consultation. I will follow this patient along with you. GENEVIEVE
--- NOTE | 2017-04-09 11:23 | P.PN ---
Subjective Principal diagnosis: Left buttock abscess Patient feels better today. Still febrile although less than before. Tachycardias lessening as well. White blood cell count improved. Cultures are pending. Objective - Vital Signs Vital signs: Vital Signs Temp 100.9 F H 04/09/17 09:25 Pulse 105 H 04/09/17 09:25 Resp 24 04/09/17 09:25 BP 116/53 04/09/17 09:25 Pulse Ox 96 04/09/17 09:25 Intake & Output 04/08/17 04/09/17 04/09/17 18:59 06:59 18:59 Intake Total 1190 1610 200 Output Total 1100 710 400 Balance 90 900 -200 Intake: IV 750 Intake, IV Titration 1190 100 Amount Magnesium Sulfate-D5w Pmx 340 1 gm In Dextrose/Water 1 100ml.bag @ 100 mls/hr IVPB Q1H [facility] Rx#: [id number] Potassium Chloride 10 meq 400 100 Lidocaine 2% Inj 10 mg In Sodium Chloride 0.9% 100 ml @ 100 mls/hr IVPB Q1HR [facility] Rx#:[id number] Vancomycin 1,750 mg In 250 Sodium Chloride 0.9% 250 ml @ 125 mls/hr IVPB ONCE ONE Rx#:[id number] cefTRIAXone 2,000 mg In 100 Sodium Chloride 0.9% 100 ml @ 100 mls/hr IVPB Q24HR [facility] Rx#:[id number] metroNIDAZOLE-NS PMX 500 100 mg In Saline 1 100ml.bag @ 100 mls/hr IVPB Q8HR [facility] Rx#:[id number] Oral 760 200 Output: Urine 1100 700 400 Estimated Blood Loss 10 Other: Voiding Method Toilet Toilet # Voids 1 1 - Exam Left buttock with slightly improved erythema, definitely improved tenderness, serosanguineous drainage - Labs CBC & Chem 7: 04/09/17 07:12 04/09/17 07:12 Labs: Abnormal Lab Results - Last 24 Hours (Table) 04/08/17 04/08/17 04/09/17 Range/Units 16:32 16:45 00:59 WBC (3.8-10.6) k/uL RBC (3.80-5.40) m/uL Hgb (11.4-16.0) gm/dL Hct (34.0-46.0) % Neutrophils # (1.3-7.7) k/uL Sodium 133 L 134 L (137-145) mmol/L Potassium 3.0 L* 3.3 L (3.5-5.1) mmol/L Chloride 108 H (98-107) mmol/L Carbon Dioxide 19 L 19 L (22-30) mmol/L BUN 6 L (7-17) mg/dL Glucose (74-99) mg/dL Calcium 7.5 L 7.9 L (8.4-10.2) mg/dL Magnesium 2.6 H (1.6-2.3) mg/dL Total Protein 5.0 L (6.3-8.2) g/dL Albumin 2.4 L (3.5-5.0) g/dL 04/09/17 04/09/17 Range/Units 07:12 07:12 WBC 13.2 H (3.8-10.6) k/uL RBC 3.31 L (3.80-5.40) m/uL Hgb 10.2 L (11.4-16.0) gm/dL Hct 30.3 L (34.0-46.0) % Neutrophils # 11.2 H (1.3-7.7) k/uL Sodium 134 L (137-145) mmol/L Potassium 2.7 L* (3.5-5.1) mmol/L Chloride (98-107) mmol/L Carbon Dioxide 20 L (22-30) mmol/L BUN 6 L (7-17) mg/dL Glucose 104 H (74-99) mg/dL Calcium 7.7 L (8.4-10.2) mg/dL Magnesium 1.5 L (1.6-2.3) mg/dL Total Protein 4.7 L (6.3-8.2) g/dL Albumin 2.3 L (3.5-5.0) g/dL Microbiology - Last 24 Hours (Table) 04/08/17 21:00 Anaerobic Culture - Preliminary Buttock 04/08/17 21:00 Wound Culture - Preliminary Buttock 04/07/17 12:56 Blood Culture - Preliminary Blood No Growth after 24 hours 04/08/17 09:10 Urine Culture - Preliminary Urine,Clean Catch Assessment and Plan (1) Left buttock abscess Narrative/Plan: Begin dressing changes today. Increase activity level. Continue antibiotics. Await cultures. Status: Acute
[2017-04-09] MEDS: cefTRIAXone 2,000 MG in SODIUM CHLORIDE 0.9% 100 ML IVPB SCH (12:19)
[2017-04-09] MEDS: IPRATROPIUM-ALBUTEROL 3 ML NEB INHALATION PRN (13:55)
--- NOTE | 2017-04-09 19:19 | PN ---
DATE OF SERVICE: 04/08/17 REASON FOR FOLLOW UP: Left gluteal abscess. INTERVAL HISTORY: The patient overall is feeling better. Has improved. She did have low grade temperature of 100.9 this morning. The patient did have drainage of the left gluteal abscess done by surgery yesterday. Overall pain to that area is currently controlled. Denies significant chest pain, shortness of breath or cough. No abdominal pain. No diarrhea. On examination, blood pressure 116/53, pulse 100, temperature 100.9, she is 96 % on room air. General description is a middle aged female lying in the bed, in no distress. Respiratory system: Unlabored breathing. Clear to auscultation anteriorly. Heart: S1, S2 regular rate and rhythm. Abdomen soft, no tenderness. LABS: Gluteal area abscess cavity is currently intact. Surrounding induration has improved. No drainage. Labs hemoglobin is 10.1, white count 13.2 with BUN 6, creatinine 0.74. Blood cultures currently pending. DIAGNOSTIC IMPRESSION AND PLAN: Patient with left gluteal abscess status post drainage, more likely ( ) with gram positive skin hattie who is waiting for the culture to finalize to adjust antibiotics further. Continue the patient on Rocephin and Vanco at this point. Continue supportive care. MTDD
[2017-04-10] MEDS: metroNIDAZOLE-NS PMX 500 MG in SALINE 1 100ML.BAG IVPB SCH ×3 (00:06→17:08)
[2017-04-10] MEDS: HYDROmorphone 1 MG/ML 1 ML SYRINGE IVP PRN ×4 (00:55→21:37)
[2017-04-10] MEDS: SODIUM CHLORIDE 0.9% 1,000 ML IV SCH ×2 (01:02→09:54)
[2017-04-10] MEDS ORDERED: VANCOMYCIN TROUGH DUE 1 EACH MISC MISCELLANE ONE (05:00)
[2017-04-10 05:24] LABS: Basophils % (A) 0 %; CHCM 33.1; Eosinophils # (A) 0.1 k/uL (0-0.7); Eosinophils % (A) 1 %; HCT 30.9 % (34.0-46.0); HDW 2.45; HGB 9.9 gm/dL (11.4-16.0); Luc # (Auto) 0.14; Luc % (Auto) 1; Lymphocytes # (A) 1.6 k/uL (1.0-4.8); Lymphocytes % (A) 16 %; MCH 30.1 pg (25.0-35.0); MCV 94.2 fL (80.0-100.0); Mean Platelet Volume 9.4; Monocytes # (A) 0.5 k/uL (0-1.0); Monocytes % (A) 5 %; Neutrophils # (A) 7.6 k/uL (1.3-7.7); Neutrophils % (A) 77 %; RBC 3.28 m/uL (3.80-5.40); RDW 13.5 % (11.5-15.5); WBC 9.9 k/uL (3.8-10.6); WBC (Perox) 10.42
[2017-04-10 05:39] LABS: ALT 41 U/L (9-52); AST 32 U/L (14-36); Alkaline Phosphatase 57 U/L (38-126); Anion Gap 8 mmol/L; Blood Urea Nitrogen 6 mg/dL (7-17); Calcium 7.9 mg/dL (8.4-10.2); Carbon Dioxide 24 mmol/L (22-30); Chloride 107 mmol/L (98-107); Glucose 96 mg/dL (74-99); Magnesium 1.3 mg/dL (1.6-2.3); Non-African American GFR(MDRD) >60 (>60 ml/min/1.73 sqM); Sodium 139 mmol/L (137-145); Total Bilirubin 0.4 mg/dL (0.2-1.3); Total Protein 4.8 g/dL (6.3-8.2)
[2017-04-10 05:45] LABS: Potassium 2.8 mmol/L (3.5-5.1)
[2017-04-10] MEDS ORDERED: Potassium Replacement Protocol 1 EACH MISC MISCELLANE PRN (06:00)
[2017-04-10] MEDS: VANCOMYCIN 1,500 MG in SODIUM CHLORIDE 0.9% 250 ML IVPB SCH ×3 (06:11→21:59)
[2017-04-10] MEDS: POTASSIUM CHLORIDE ER 20 MEQ TAB.ER PO SCH ×3 (06:45→10:44)
[2017-04-10] MEDS: PANTOPRAZOLE 40 MG TABLET PO SCH (08:02)
[2017-04-10] MEDS: POTASSIUM CHLORIDE 10 MEQ, LIDOCAINE 2% INJ 10 MG in SODIUM CHLORIDE 0.9% 100 ML IV SCH ×3 (08:02→10:43)
[2017-04-10] MEDS: HYDROcodone/APAP 10-325MG 1 EACH TAB PO PRN ×2 (08:10→18:35)
--- NOTE | 2017-04-10 09:32 | PN ---
This lady is doing well and the I&D was done last night. Magnesium and potassium are low. PHYSICAL EXAM: Chest is clear. The cardiac exam is normal. Abdomen is soft and nontender. IMPRESSION: 1. Abscess of left buttock. 2. Hypokalemia. 3. Hypomagnesemia. PLAN: Continue with IV antibiotics and wound care. MTDD
[2017-04-10] MEDS: LACTOBACILLUS ACIDOPH & BULGAR 1 EACH PACKET PO SCH ×4 (09:36→21:40)
[2017-04-10] MEDS: cefTRIAXone 2,000 MG in SODIUM CHLORIDE 0.9% 100 ML IVPB SCH (09:36)
--- NOTE | 2017-04-10 09:42 | P.PN ---
Subjective Principal diagnosis: Left buttock abscess Patient says her pain is only slightly improved. Potassium remains low at 2.8 today. T-max 100.5. Objective - Vital Signs Vital signs: Vital Signs Temp 98.0 F 04/10/17 04:00 Pulse 90 04/10/17 04:00 Resp 16 04/10/17 04:00 BP 113/77 04/10/17 04:00 Pulse Ox 96 04/10/17 04:00 Intake & Output 04/09/17 04/10/17 04/10/17 18:59 06:59 18:59 Intake Total 650 Output Total 400 Balance 250 Intake: Oral 650 Output: Urine 400 Other: # Voids 1 # Bowel Movements 1 - Exam Left buttock with persistent erythema and tenderness, slightly improved from preoperative state - Labs CBC & Chem 7: 04/10/17 05:18 04/10/17 05:18 Labs: Abnormal Lab Results - Last 24 Hours (Table) 04/10/17 04/10/17 04/10/17 Range/Units 00:05 05:18 05:18 RBC 3.28 L (3.80-5.40) m/uL Hgb 9.9 L (11.4-16.0) gm/dL Hct 30.9 L (34.0-46.0) % Potassium 3.1 L 2.8 L* (3.5-5.1) mmol/L BUN 6 L (7-17) mg/dL Calcium 7.9 L (8.4-10.2) mg/dL Magnesium 1.3 L (1.6-2.3) mg/dL Total Protein 4.8 L (6.3-8.2) g/dL Albumin 2.3 L (3.5-5.0) g/dL Microbiology - Last 24 Hours (Table) 04/07/17 12:56 Blood Culture - Preliminary Blood No Growth after 48 hours 04/08/17 21:00 Gram Stain - Preliminary Buttock Wound Culture - Preliminary 04/08/17 09:10 Urine Culture - Final Urine,Clean Catch 04/08/17 21:00 Anaerobic Culture - Preliminary Buttock Assessment and Plan (1) Left buttock abscess Narrative/Plan: Continue IV antibiotics. Await cultures. Correct hypokalemia. Continue local wound care. Will switch to Aquacel silver. Status: Acute
[2017-04-10] MEDS: MAGNESIUM SULFATE-D5W PMX 1 GM in DEXTROSE/WATER 1 100ML.BAG IVPB SCH ×2 (11:53→13:30)
--- NOTE | 2017-04-10 21:04 | PN ---
CHIEF COMPLAINT: Abscess of left buttock. HISTORY OF PRESENT ILLNESS: This lady is doing well. Pain is improving. Buttock was drained. PHYSICAL EXAM: Chest is clear. Cardiac exam is normal . Abdomen soft and nontender. IMPRESSION: 1. Abscess left buttock. 2. Anemia. 3. Hypokalemia. PLAN: Continue with IV fluids and antibiotics and daily dressing changes until Wednesday at the direction of surgery. GENEVIEVE
[2017-04-11] MEDS: VANCOMYCIN 1,500 MG in SODIUM CHLORIDE 0.9% 250 ML IVPB SCH ×2 (06:26→14:14)
[2017-04-11] MEDS: PANTOPRAZOLE 40 MG TABLET PO SCH (07:38)
[2017-04-11] MEDS: LACTOBACILLUS ACIDOPH & BULGAR 1 EACH PACKET PO SCH ×4 (07:38→21:54)
[2017-04-11] MEDS: cefTRIAXone 2,000 MG in SODIUM CHLORIDE 0.9% 100 ML IVPB SCH ×2 (07:38→08:58)
[2017-04-11] MEDS: HYDROmorphone 1 MG/ML 1 ML SYRINGE IVP PRN ×2 (07:46→16:13)
[2017-04-11 07:52] LABS: Basophils % (A) 0 %; CH 30.8; CHCM 32.8; Eosinophils # (A) 0.3 k/uL (0-0.7); Eosinophils % (A) 3 %; HCT 33.5 % (34.0-46.0); HDW 2.53; HGB 10.5 gm/dL (11.4-16.0); Luc # (Auto) 0.13; Luc % (Auto) 2; Lymphocytes # (A) 1.4 k/uL (1.0-4.8); Lymphocytes % (A) 17 %; MCH 29.8 pg (25.0-35.0); MCHC 31.5 g/dL (31.0-37.0); MCV 94.4 fL (80.0-100.0); Monocytes # (A) 0.3 k/uL (0-1.0); Monocytes % (A) 3 %; Neutrophils # (A) 6.2 k/uL (1.3-7.7); Neutrophils % (A) 74 %; RBC 3.54 m/uL (3.80-5.40); RDW 13.4 % (11.5-15.5); WBC 8.3 k/uL (3.8-10.6); WBC (Perox) 8.26
[2017-04-11 08:34] LABS: ALT 37 U/L (9-52); AST 26 U/L (14-36); Alkaline Phosphatase 52 U/L (38-126); Anion Gap 9 mmol/L; Blood Urea Nitrogen 5 mg/dL (7-17); Calcium 7.9 mg/dL (8.4-10.2); Carbon Dioxide 23 mmol/L (22-30); Chloride 109 mmol/L (98-107); Glucose 76 mg/dL (74-99); Magnesium 1.2 mg/dL (1.6-2.3); Non-African American GFR(MDRD) >60 (>60 ml/min/1.73 sqM); Potassium 3.4 mmol/L (3.5-5.1); Sodium 141 mmol/L (137-145); Total Bilirubin 0.2 mg/dL (0.2-1.3); Total Protein 4.8 g/dL (6.3-8.2)
[2017-04-11] MEDS ORDERED: Magnesium Replacement Protocol 1 EACH MISC MISCELLANE PRN (09:42)
[2017-04-11] MEDS ORDERED: Potassium Replacement Protocol 1 EACH MISC MISCELLANE PRN (09:43)
--- NOTE | 2017-04-11 10:01 | P.PN ---
Subjective Principal diagnosis: Left buttock abscess patient says her pain is slightly better. White blood cell count normal. she is afebrile. cultures are growing staph and strep. Magnesium and potassium both slightly low. Objective - Vital Signs Vital signs: Vital Signs Temp 97.9 F 04/11/17 08:27 Pulse 94 04/11/17 08:27 Resp 19 04/11/17 08:27 BP 132/67 04/11/17 08:27 Pulse Ox 97 04/11/17 08:27 Intake & Output 04/10/17 04/11/17 04/11/17 18:59 06:59 18:59 Intake Total 580 Balance 580 Intake: Oral 580 Other: Voiding Method Toilet # Voids 1 3 - Exam left buttock erythema slightly improved, tenderness improved , some semi- purulent drainage persists - Labs CBC & Chem 7: 04/11/17 07:18 04/11/17 07:18 Labs: Abnormal Lab Results - Last 24 Hours (Table) 04/11/17 04/11/17 Range/Units 07:18 07:18 RBC 3.54 L (3.80-5.40) m/uL Hgb 10.5 L (11.4-16.0) gm/dL Hct 33.5 L (34.0-46.0) % Potassium 3.4 L (3.5-5.1) mmol/L Chloride 109 H (98-107) mmol/L BUN 5 L (7-17) mg/dL Calcium 7.9 L (8.4-10.2) mg/dL Magnesium 1.2 L (1.6-2.3) mg/dL Total Protein 4.8 L (6.3-8.2) g/dL Albumin 2.3 L (3.5-5.0) g/dL Microbiology - Last 24 Hours (Table) 04/07/17 12:56 Blood Culture - Preliminary Blood No Growth after 72 hours 04/08/17 21:00 Gram Stain - Preliminary Buttock Wound Culture - Preliminary Presumptive Staph aureus Strep pyogenes (grp a) Assessment and Plan (1) Left buttock abscess Narrative/Plan: continue IV antibiotics. Continue local wound care. Status: Acute
[2017-04-11] MEDS: MAGNESIUM SULFATE-D5W PMX 1 GM in DEXTROSE/WATER 1 100ML.BAG IVPB SCH ×3 (10:36→12:58)
[2017-04-11] MEDS: POTASSIUM CHLORIDE ER 20 MEQ TAB.ER PO SCH ×2 (10:38→11:47)
[2017-04-11] MEDS: HYDROcodone/APAP 10-325MG 1 EACH TAB PO PRN ×2 (11:47→19:11)
[2017-04-11] MEDS: SODIUM CHLORIDE 0.9% 1,000 ML IV SCH ×2 (12:58→23:23)
[2017-04-11] MEDS ORDERED: VANCOMYCIN TROUGH DUE 1 EACH MISC MISCELLANE ONE (13:00)
--- NOTE | 2017-04-11 13:56 | PN ---
DATE OF SERVICE: 04/10/17 REASON FOR FOLLOW UP: Left gluteal abscess. INTERVAL HISTORY: The patient is afebrile. She is breathing comfortably. Pain to the left gluteal area is currently controlled. The patient denies significant chest pain, shortness of breath or any cough. No abdominal pain or any diarrhea. On examination, blood pressure 114/84, pulse 86, temperature 98.2, she is 96 % on room air. General description is a middle aged female lying in the bed in no distress. Respiratory system: Unlabored breathing. Clear to auscultation anteriorly. Heart: S1, S2 regular rate and rhythm. Abdomen soft, no tenderness. Gluteal area the surrounding redness and induration has improved. LABS: Wound cultures showing Group B strep and Staph aureus. The ( ) for Staph aureus is pending. DIAGNOSTIC IMPRESSION AND PLAN: Patient with left gluteal abscess status post drainage. Cultured with Staph aureus and ( ) currently covered with Rocephin and Vanco that will be continued adjusting further based on culture report. Continue supportive care. MTDD
[2017-04-11 16:13] VITALS: RESP 20
[2017-04-11] MEDS: ceFAZolin 2 GM in SODIUM CHLORIDE 0.9% 100 ML IVPB SCH (17:54)
[2017-04-11] MEDS: VANCOMYCIN 1,750 MG in SODIUM CHLORIDE 0.9% 250 ML IVPB SCH (21:54)
[2017-04-12] MEDS: ceFAZolin 2 GM in SODIUM CHLORIDE 0.9% 100 ML IVPB SCH ×2 (00:21→09:18)
[2017-04-12] MEDS: HYDROmorphone 1 MG/ML 1 ML SYRINGE IVP PRN ×2 (04:08→11:42)
[2017-04-12] MEDS: VANCOMYCIN 1,750 MG in SODIUM CHLORIDE 0.9% 250 ML IVPB SCH ×2 (05:48→12:56)
[2017-04-12] MEDS: SODIUM CHLORIDE 0.9% 1,000 ML IV SCH ×3 (07:30→09:12)
[2017-04-12] MEDS ORDERED: MAGNESIUM OXIDE 400 MG TAB PO SCH (09:00)
[2017-04-12] MEDS: POTASSIUM CHLORIDE ER 20 MEQ TAB.ER PO SCH ×2 (09:20→11:41)
[2017-04-12] MEDS: PANTOPRAZOLE 40 MG TABLET PO SCH (09:20)
[2017-04-12] MEDS: LACTOBACILLUS ACIDOPH & BULGAR 1 EACH PACKET PO SCH ×2 (09:20→12:55)
[2017-04-12] MEDS: HYDROcodone/APAP 10-325MG 1 EACH TAB PO PRN (09:38)
--- NOTE | 2017-04-12 11:09 | P.DS ---
Providers Date of admission: 04/07/17 16:19 Expected date of discharge: 04/12/17 Attending physician: Shaun Strauss Consults: 04/08/17 08:09 Consult Physician Urgent Consulting Provider: David Quezada Consult Reason/Comments: questionable abscess left buttock IND questionable needed Do you want consulting provider notified?: Yes 04/08/17 08:13 Consult Physician Urgent Consulting Provider: Piedad Quiles Consult Reason/Comments: recommendations antibiotic Do you want consulting provider notified?: Yes Primary care physician: Shaun Strauss Hospital Course: 37-year-old female presented on the day of admission to the emergency room with a chief complaint of developing painful swelling redness tenderness involving the left buttocks. Patient stated it started approximately 3 days ago when she noted "looked like a pimple over the next 24-48 hours it expanded Increased in size woke up the day of the event the left buttocks cheek swollen tender with firmness at the site. Patient stated she had a temp of 102 at home felt heart palpitations increased fatigue nausea sensation vomited 1. Patient denies any injury. Patient denies any prior treatment for abscess. Patient denied abdominal pain denied any frequency urgency with urination. Patient states she has had a poor oral appetite at home secondary to the pain in the left buttock. Patient stated that she was concerned and came into the emergency room to be evaluated for the above-mentioned symptoms. In the emergency room the temp was 103 patient was tachycardic heart rate was in the 130s white count was elevated to 21 patient was admitted started on IV fluid and IV antibiotics. The left buttock has increased in size from the reference markings. The left buttocks red cellulitis firm with several small blisters. Infectious disease consultation was requested patient was seen by Dr. Quiles. Patient did undergo a incision and drainage of the left buttock abscess on April [address] Quezada. Cultures were obtained. The wound cultures showed MRSA patient was followed closely by infectious disease with IV antibiotics according to infectious diseases recommendations. At the time of discharge patient's was felt to be appropriate from all consulting physicians was discharged home on an oral antibiotic Keflex and Bactrim. Additionally home care was offered to the patient patient declined lives with a significant other who would be doing the wound care with Aquacel rope to the surgical incision. Patient's symptoms significantly improved and patient was felt to be hemodynamically stable and appropriate proceed with a discharge to home impression Present on admission febrile tachycardic leukocytosis sepsis suspect due to left buttock abscess new onset Current every day smoker 1 pack a day Anxiety depressive disorder nonspecified Present on admission indurated area left buttock and left greater trochanter abscess Status post April 08 incision and drainage left buttock abscess measuring 6 x 4 cm Electrolyte abnormality hypo-magnesium, hypokalemia The above impression and plan of care have been discussed and directed by signing physician. Jennifer Portillo nurse practitioner acting as scribe for signing physician. Patient Condition at Discharge: Good Plan - Discharge Summary New Discharge Prescriptions: New Cephalexin [Keflex] 500 mg PO Q6HR #40 cap Sulfamethox-Tmp 800-160Mg [Bactrim DS 800-160 mg] 1 tab PO Q12HR #28 tab Acetaminophen Tab [Tylenol] 1,000 mg PO Q6HR PRN tab PRN Reason: Fever And/ Or Pain Continue HYDROcodone/APAP 10-325MG [[place] 10-325] 1 tab PO QID PRN PRN Reason: Pain Discharge Medication List HYDROcodone/APAP 10-325MG [[place] 10-325] 1 tab PO QID PRN 10/19/15 [History] Acetaminophen Tab [Tylenol] 1,000 mg PO Q6HR PRN tab 04/12/17 [Rx] Cephalexin [Keflex] 500 mg PO Q6HR #40 cap 04/12/17 [Rx] Sulfamethox-Tmp 800-160Mg [Bactrim DS 800-160 mg] 1 tab PO Q12HR #28 tab [Rx] Follow up Appointment(s)/Referral(s): Shaun Strauss MD [Primary Care Provider] - 1-2 days Piedad Quiles MD [STAFF PHYSICIAN] - 1 Week David Quezada MD [Medical Doctor] - 1 Week Activity/Diet/Wound Care/Special Instructions: [employer] role-playing to the left buttock wound daily Discharge Disposition: HOME SELF-CARE
[2017-04-12 11:59] VITALS: BP 146/97; PULSE 80; TEMP 97.8
--- NOTE | 2017-04-12 14:14 | P.PN ---
Progress Note - Text Patient doing better today. Her pain is improved. Examination reveals improved erythema. Tenderness is much improved as well. Orders for discharge already placed. Follow-up in the office.
--- NOTE | 2017-04-12 17:03 | PN ---
DATE OF SERVICE: 04/11/2017 REASON FOR FOLLOW UP: Left gluteal abscess. INTERVAL HISTORY: The patient is afebrile. Pain to the left gluteal area is currently controlled. The patient denies significant chest pain, shortness of breath, cough. No vomiting, no diarrhea. On examination, blood pressure is 149/78 with a pulse of 82, temperature 97.9. She is on 98% on room air. GENERAL DESCRIPTION: Middle-aged female lying in bed in no distress. RESPIRATORY: Unlabored breathing. Clear to auscultation anteriorly. HEART: S1/S2 regular. ABDOMEN: Soft. Nontender. Gluteal area swelling has decreased. LABS: Hemoglobin 10.5, white count 8.3. Wound cultures reveal MRSA and strep pyogenous. DIAGNOSTIC IMPRESSION: Patient with left gluteal abscess status post drainage. Cultures did show methicillin-resistant Staphylococcus aureus and Streptococcus pyogenous. Antibiotics got switched to Vancomycin to be continued ( ) another 24 hours. Hopefully then will change p.o. Keflex and Bactrim DS along with Aquacel packing of the wound. Continue supportive care. GENEVIEVE
[2017-04-12] MEDS ORDERED: POTASSIUM CHLORIDE ER 20 MEQ TAB.ER PO SCH (21:00)
[2017-04-13] MEDS ORDERED: VANCOMYCIN TROUGH DUE 1 EACH MISC MISCELLANE ONE (05:00)
--- NOTE | 2017-04-13 06:03 | PN ---
DATE OF SERVICE: 04/12/2017 Reason for follow up is left gluteal abscess. INTERVAL HISTORY: The patient is afebrile. She is currently feeling better. Breathing comfortably. Pain to the left gluteal area is currently controlled. Patient denies significant chest pain, shortness of breath or cough. No abdominal pain or any diarrhea. On examination, blood pressure is 146/97 with a pulse of 80, temperature 97.8. She is 96% on room air. General description is a young female lying in bed in no distress. RESPIRATORY SYSTEM: Unlabored breathing. Clear to auscultation anteriorly. HEART: S1 and S2, regular rate and rhythm. ABDOMEN: Soft. Left gluteal area overall swelling and redness has improved. DIAGNOSTIC IMPRESSION AND PLAN: Patient with left gluteal abscess, status post drainage. Culture with Streptococcus pyogenes and methicillin-resistant Staphylococcus aureus. Patient will finish antibiotic therapy in the form of p.o. Bactrim and Keflex. Script has been sent to the pharmacy. Aquacel silver packing of the wound. Continue supportive care. [facility]
--- NOTE | 2017-04-13 07:43 | PN ---
DATE OF SERVICE: 04/11/2017 CHIEF COMPLAINT: MRSA abscess to the buttock. HISTORY OF PRESENT ILLNESS: Doing well, she is having no problems and it is planned that she will go home tomorrow. On physical exam, her chest is clear. Cardiac exam is normal and the abdomen is soft, nontender. IMPRESSION: 1. Abscess of the left buttock, status post I&D. PLAN: She is supposed to go home on Wednesday. GENEVIEVE
--- NOTE | 2017-04-13 08:18 | PN ---
CHIEF COMPLAINT: Abscess left buttock. HISTORY OF PRESENT ILLNESS: This lady is doing well and is expected to go home today. PHYSICAL EXAM: Chest is clear and cardiac exam is normal and the abdomen is soft, nontender. IMPRESSION: 1. Methicillin-resistant Staphylococcus aureus left buttock. 2. Hypomagnesemia. 3. Hypokalemia. PLAN: Probably home today. GENEVIEVE
== END 2017-04-12 16:06 | disposition home health service (06) | DRG 872 ==
LOC: EC 12:32 → 6PED 16:19
PROVIDERS: ADMIT Family Medicine; ATTEND Family Medicine
PROC: 3E0234Z Introduction of Serum, Toxoid and Vaccine into Muscle, Percutaneous Approach (ICD-10-PCS; 2017-04-07)
PROC: 0H98XZX Drainage of Buttock Skin, External Approach, Diagnostic (ICD-10-PCS; principal; 2017-04-08 09:15)
DX: A41.9 Sepsis, unspecified organism (principal); E83.42 Hypomagnesemia; L02.31 Cutaneous abscess of buttock; L03.317 Cellulitis of buttock; B95.62 Methicillin resistant Staphylococcus aureus infection as the cause of diseases classified elsewhere; Z23 Encounter for immunization; F17.200 Nicotine dependence, unspecified, uncomplicated; F41.8 Other specified anxiety disorders; G89.29 Other chronic pain; E87.6 Hypokalemia; D64.9 Anemia, unspecified; M54.9 Dorsalgia, unspecified; F20.9 Schizophrenia, unspecified; Z85.41 Personal history of malignant neoplasm of cervix uteri; Z85.43 Personal history of malignant neoplasm of ovary; Z88.0 Allergy status to penicillin
CPT/HCPCS: 36415; 80048; 80053; 80202; 81001; 83605; 83735; 84132; 85025; 87040; 87070; 87075; 87077; 87086; 87186; 87205; 88304; 88312; 94640; 96365; 96366; 96375; 99291